=== PATIENT | female | born 2005 | race Caucasian/White ===

== ENCOUNTER 2024-04-23 15:00 | Emergency (ER) | payer BC ==
[2024-04-23] MEDS ORDERED: Boostrix 0.5 ML (Tdap) VIAL (>/=7 yrs of age) ONE (15:31)
== END 2024-04-23 15:57 | disposition home or self-care (01) ==
LOC: CSHERS 15:00
DX: L60.0 Ingrowing nail (principal)
CPT/HCPCS: 90715; 99283